=== PATIENT | male | born 1975 | race African-American/Black ===

== ENCOUNTER 2016-10-20 00:18 | Emergency (ER) | payer SELFPAY ==
[~2016-10-20] VITALS: Ht 190.5 cm; Wt 88.6 kg
[2016-10-20 01:39] LABS: HEMATOCRIT 47.1 % (38.0-50.0); MCH 27.1 PG (29.0-34.0); MCHC 32.3 G/DL (30.0-36.0); MCV 84.1 FL (86-99); MEAN PLAT.VOLUME 9.6 uM^3 (9.0-12.4); PLATELET COUNT 195 K/uL (156-360); RBC DIS.WIDTH-CV 13.7 % (11.8-14.6); RBC DIS.WIDTH-SD 42.3 % (39-53); WHITE BLOOD COUNT 12.7 K/uL (4.1-10.2)
[2016-10-20 02:09] LABS: CHLORIDE 101 mEq/L (99-109); POTASSIUM 4.3 mEq/L (3.7-5.4); SODIUM 135 mEq/L (136-147)
[2016-10-20 02:11] LABS: GLUCOSE 96 mg/dL (70-99)
[2016-10-20 02:12] LABS: ANION GAP 12 MEQ/L (2-14)
[2016-10-20 02:15] LABS: GFR ESTIMATE (CALCULATED) > 59 mL/min/
[2016-10-20 02:16] LABS: UREA NITROGEN (BUN) 20 mg/dL (9-23)
[2016-10-20] MEDS ORDERED: PREDNISONE50 MG PO (02:42)
[2016-10-20] MEDS ORDERED: VENTOLIN HFA18 GM IH (02:42)
[2016-10-20 02:48] VITALS: BP 129/72
== END 2016-10-20 02:49 | disposition home or self-care (01) ==
LOC: EME 00:18
DX: J45.901 Unspecified asthma with (acute) exacerbation (principal); F17.200 Nicotine dependence, unspecified, uncomplicated
CPT/HCPCS: 71020; 80048; 85027; 94640; 99281; 99283; J7512